=== PATIENT | male | born 1940 | race Caucasian/White ===

== ENCOUNTER 2020-04-20 08:14 | Inpatient (IN) | payer MEDICARE, OTHER ==
[2020-04-20] MEDS ORDERED: Diltiazem 125 MG/25 ML ONE (08:29)
[2020-04-20 08:41] LABS: #Eosinphils 0.1 thou/uL (0.0-0.7); #Lymphocytes 1.4 thou/uL (1.20-3.40); #Monocytes 0.3 thou/uL (0.11-0.59); %Eosinophils 1.4 % (0.0-10.0); %Lymphocytes 28.4 % (21.0-51.0); %Monocytes 6.8 % (0.0-10.0); %Neutrophils 62.4 % (42.0-75.0); Hemoglobin 15.4 g/dL (14.0-18.0); Mean Corpuscular HGB CONC 33.9 g/dL (32.0-36.0); Mean Corpuscular Hemoglobin 34.4 pg (27.0-31.0); Mean Platelet Volume 7.9 fL (7.4-10.4); Platelet Count 131 thou/uL (130-400); RBC Distribution Width 14.1 % (11.5-14.5); Red Blood Cell (RBC) Count 4.47 mill/uL (4.70-6.10); White Blood Cell (WBC) Count 4.8 thou/uL (4.8-10.8)
--- NOTE | 2020-04-20 08:45 | RAD ---
EXAM: Single view of the chest HISTORY: Leg swelling COMPARISON: None FINDINGS: Single view of the chest shows an enlarged cardiomediastinal silhouette. Calcified right h ilar and mediastinal lymph nodes are seen. There is a moderate right pleural effusion with adjacent atelectasis. The bones are unremarkable. IMPRESSION: Moderate right pleural effusion
[2020-04-20 08:55] LABS: ALT (SGPT) 20 U/L (8-55); AST (SGOT) 32 U/L (5-34); Albumin 3.9 g/dL (3.4-4.8); Alkaline Phosphatase 88 U/L (40-110); Anion Gap 15 mmol/L (10-20); BUN (Urea Nitrogen) 21 mg/dL (8.4-25.7); Bilirubin, Total 1.1 mg/dL (0.2-1.2); CK (CPK) 77 U/L (30-200); Calc. Creatinine Clearance 0 mL/min (70-130); Calcium 9.3 mg/dL (7.8-10.44); Carbon Dioxide 25 mmol/L (23-31); Chloride 107 mmol/L (98-107); Estimated GFR-MDRD 67; Globulin 2.8 g/dL (2.4-3.5); Glucose 101 mg/dL (83-110); Lipase 13 U/L (8-78); Potassium 3.9 mmol/L (3.5-5.1); Protein, Total 6.7 g/dL (5.8-8.1); Sodium 143 mmol/L (136-145)
[2020-04-20 12:03] LABS: Troponin I 0.018 ng/mL (< 0.028)
[2020-04-20 12:47] VITALS: BMI 26.8
[2020-04-20] MEDS ORDERED: Prevnar 13-Val Conj/PF 0.5 ML SYRINGE IM ONE (14:00)
[2020-04-20 14:47] LABS: Troponin I 0.018 ng/mL (< 0.028)
[2020-04-20] MEDS ORDERED: Ondansetron PF 4 MG/2 ML Vial IVP PRN (15:33)
[2020-04-20] MEDS ORDERED: Acetaminophen 325 MG TAB PO PRN (15:33)
[2020-04-20] MEDS ORDERED: Guaifenesin DM 100-10/5 ML UDCUP PO PRN (15:33)
[2020-04-20] MEDS ORDERED: Senokot S 8.6-50 MG TAB PO PRN (15:33)
[2020-04-20] MEDS ORDERED: Acetaminophen 650 MG Suppository PR PRN (15:33)
[2020-04-20] MEDS ORDERED: Ondansetron ODT 4 MG TAB PO PRN (15:33)
[2020-04-20] MEDS ORDERED: hydrALAZINE 20 MG/ML VIAL SLOW IVP PRN (15:34)
[2020-04-20] MEDS ORDERED: Labetalol HCl 100 MG/20 ML VIAL SLOW IVP PRN (15:34)
[2020-04-20] MEDS ORDERED: Diltiazem 125 MG in Sodium Chloride 0.9% 100 ML IVPB SCH (15:45)
[2020-04-20] MEDS ORDERED: Furosemide 40 MG/4 ML VIAL SLOW IVP SCH (18:45)
--- NOTE | 2020-04-20 18:57 | CON ---
DATE OF CONSULTATION: 04/20/2020 REASON FOR CONSULTATION: Atrial fibrillation with RVR. HISTORY OF PRESENT ILLNESS: Mr. Armando is a pleasant 79-year-old, white gentleman, who comes to the hospital for shortness of breath. He states that for the last week he has noticed that he is able to lay down in bed and after a few hours, he wakes up gasping for air. He has to sit up to breathe better. He also notices leg swelling for the past 3 weeks, which has been slowly getting worse. This is the first time he has had this issue before. He states that he has been told he has high blood pressure, but is mostly white coat hypertension. He states that when he checks his blood pressure at home is normal in the 130s, but when he goes to the doctor's in the 160s. On arrival to the ER, he was found to be in atrial fibrillation with RVR, heart rate in the 170s. He was started on diltiazem drip, given subcu Lovenox full dose and admitted for further evaluation. Cardiology is being consulted for all of this. PAST MEDICAL HISTORY: 1. Hypertension. He states it is more white coat hypertension. Takes no medications for it. 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 PAST SURGICAL HISTORY: 1. Retinal detachment, status post reattachment bilateral. 2. Right knee surgery. SOCIAL HISTORY: No alcohol, tobacco, or drugs. OUTPATIENT MEDICATIONS: Prilosec 10 mg a day. ALLERGIES: PENICILLIN. FAMILY HISTORY: Noncontributory. REVIEW OF SYSTEMS: A 12-point review of systems was done and was all negative unless stated in the History of Present Illness. PHYSICAL EXAMINATION: VITAL SIGNS: Temperature 97.8, pulse 178. On arrival to the ER since diltiazem drip, he has been between 98 to 113, respiratory rate 24, saturating 95% on room air. GENERAL: Awake, alert, and oriented x3. No distress. Sitting at about 60 degrees angle. HEENT: Normocephalic, atraumatic. NECK: Supple. LUNGS: Reduced breath sounds at bilateral bases. No breath sounds in the right base and dull to percussion, suggestive of a large pleural effusion. CARDIOVASCULAR: S1 and S2. No S3 or S4. Irregularly irregular heart rate in the low 100s. There is a holosystolic murmur at the apex, grade 2/6. ABDOMEN: Positive bowel sounds. May be ascites, difficult to assess. EXTREMITIES: 1+ edema. SKIN: Warm and dry. LABORATORY DATA: Laboratory work was reviewed. White count of 4.8, hemoglobin of 15.4, hematocrit 45, and platelet count of a 131. Chemistries were completely unremarkable. GFR of 67, creatinine 1.06. Troponin was negative x3. BNP was 547. TSH was high at 7.03. Free T4 and free T3 are pending. Lipase was normal. EKG on arrival showed atrial fibrillation with RVR, heart rate in the 170s. Telemetry now, heart rate in the 90s to 110s. Chest x-ray shows a large right-sided pleural effusion. ASSESSMENT: 1. Atrial fibrillation with rapid ventricular response. 2. Acute on chronic systolic versus diastolic dysfunction. 3. Right-sided pleural effusion, large. 4. Possible hypertension. PLAN: 1. Agree with rate control at this time with diltiazem drip. 2. Continue full-dose Lovenox for stroke prophylaxis as he has a CHADS-VASc score of 3 with age above 75 giving him 2 points and hypertension that is 3 points total. 3. We will await echocardiogram results. 4. Pulmonary malignancy would be in my differential given the large amount of fluid on the right side, although right-sided pleural effusions are typical with decompensated heart failure patients. We will await echocardiogram results. Thank you for letting us to participate in the care of your patient. We will continue to follow. Job ID: [id number]
[2020-04-20] MEDS: Enoxaparin Sodium 100 MG/ML SYRINGE SC SCH (21:37)
--- NOTE | 2020-04-20 23:40 | HP ---
PRIMARY CARE PHYSICIAN: Dr. Keren Godoy. CHIEF COMPLAINT: Edema and shortness of breath. HISTORY OF PRESENT ILLNESS: This is a 79-year-old white male with a past medical history of white coat hypertension, who presented to the hospital with a 3-week history of increasing swelling in his lower extremities, his scrotum, and his abdomen. He also noted some problems with going to sleep and waking up later gasping for breath and some dyspnea on exertion for the last few days and eventually decided to come to the emergency room. In the ER, he was found to be in atrial fibrillation with rapid ventricular rate, also had an elevated brain natriuretic peptide and a moderate right pleural effusion on his chest x-ray. He was started on diltiazem drip in the emergency room with improvement in his pressures and then was admitted to the [facility]. REVIEW OF SYSTEMS: CONSTITUTIONAL: No fevers. No chills. No weight changes. EYES: No double vision or blurred vision. ENT: No congestion, drainage, or sore throat. CARDIOVASCULAR: No chest pain. No palpitations or racing heart. PULMONARY: See HPI. He has had minimal cough without any sputum. No wheezing or chest tightness. GASTROINTESTINAL: No abdominal pain. No nausea or vomiting. No diarrhea or constipation. GENITOURINARY: No dysuria or hematuria. MUSCULOSKELETAL: No muscle aches or joint pain. SKIN: No rashes or lesions he has noted. NEUROLOGIC: No numbness, tingling, or focal weakness. PAST MEDICAL HISTORY: 1. White coat hypertension. Blood pressure is typically in the 130s. She checks it at home, but again 160s to 170s when checked at the doctor's office. He does monitor this regularly. 2. Gastroesophageal reflux disease with esophageal stricture. PAST SURGICAL HISTORY: 1. Right knee arthroscopically. 2. Bilateral cataract surgeries. 3. Bilateral retinal detachment surgeries. 4. Esophageal stricture dilatation x2. SOCIAL HISTORY: The patient denies tobacco, alcohol, or illicit drug use. He lives with his , who is his medical decision maker, her name is Soniya Armando and the patient reports he is a full code. FAMILY HISTORY: Significant for hypertension. ALLERGIES: TO PENICILLIN. CURRENT MEDICATIONS: Prilosec 20 mg daily [id number]. PHYSICAL EXAMINATION: VITAL SIGNS: Blood pressure 186/115, pulse 108, respirations 19, O2 saturation 97% on room air, temperature 98.0. GENERAL: This is a well-developed, well-nourished white male, in no acute distress. HEENT: Pupils are equal, round, and reactive to light. Oropharynx clear without lesions, erythema, or exudate. NECK: Supple. No lymphadenopathy. No thyroid nodules or enlargement. No JVD. HEART: Irregularly irregular rhythm with a mildly tachycardic rate. No murmurs, rubs, or gallops. LUNGS: Clear to auscultation bilaterally, but slightly decreased in the right base, otherwise good air movement throughout. No wheezes, crackles, or rhonchi. ABDOMEN: Soft, nontender to palpation. Normoactive bowel sounds. No hepatosplenomegaly or other masses. EXTREMITIES: No clubbing or cyanosis. He does have mild pitting edema to the lower extremities up to the lower thighs bilaterally. SKIN: No rashes or lesions noted. NEUROLOGIC: Intact strength and sensation to all extremities. No facial droop. PSYCHIATRIC: Alert and oriented x3. Normal mood and affect. LABORATORY DATA: CBC within normal limits except for MCV of 102. Complete metabolic panel within normal limits. Troponin negative x3. Brain natriuretic peptide elevated at 547. The last check on this was in 2017 was over 149. TSH was elevated at 7.0. IMAGING STUDIES: Chest x-ray, I did review the chest x-ray done in the emergency room along with the radiologist's report. It does show cardiomegaly, increased pulmonary vascular markings and a moderate right pleural effusion and an enlarged cardiac silhouette. EKG in the emergency room showed atrial fibrillation with rapid ventricular rate; however, with a heart rate of 174 beats per minute. No significant ST-segment or T-wave changes. ASSESSMENT: 1. New-onset atrial fibrillation with rapid ventricular rate. The patient with improved rate on diltiazem drip. We will continue to instruct and we will consult Cardiology. Family has requested Dr. Ballesteros will continue full-dose Lovenox. 2. Hypertension, history of white coat hypertension. We will diurese the patient and add blood pressure medicine as needed. 3. Acute onset of congestive heart failure, likely related to his atrial fibrillation, though he may have some systolic dysfunction as well with an echocardiogram to determine and we will continue IV Lasix twice a day for diuresis. 4. High TSH. We will check a free T4 and free T3. 5. Gastroesophageal reflux disease with history of esophageal stricture. We will continue patient on CP daily. 6. Deep venous thrombosis prophylaxis. The patient is on Lovenox. CODE STATUS: The patient is a full code. Should he be incapacitated, his Soniya Armando would be his medical decision maker. Job ID: [id number]
[2020-04-21 04:02] LABS: #Basophils 0.1 thou/uL (0.0-0.2); #Eosinphils 0.1 thou/uL (0.0-0.7); #Lymphocytes 1.2 thou/uL (1.20-3.40); #Monocytes 0.5 thou/uL (0.11-0.59); #Neutrophils 3.1 thou/uL (1.40-6.50); %Basophils 1.2 % (0.0-1.0); %Eosinophils 2.5 % (0.0-10.0); %Lymphocytes 23.6 % (21.0-51.0); %Monocytes 9.2 % (0.0-10.0); %Neutrophils 63.5 % (42.0-75.0); Hemoglobin 14.4 g/dL (14.0-18.0); Mean Corpuscular HGB CONC 34.1 g/dL (32.0-36.0); Mean Corpuscular Hemoglobin 33.9 pg (27.0-31.0); Mean Corpuscular Volume 99.2 fL (78.0-98.0); Mean Platelet Volume 7.7 fL (7.4-10.4); Platelet Count 141 thou/uL (130-400); RBC Distribution Width 14.1 % (11.5-14.5); Red Blood Cell (RBC) Count 4.25 mill/uL (4.70-6.10); White Blood Cell (WBC) Count 4.9 thou/uL (4.8-10.8)
[2020-04-21 04:20] LABS: Anion Gap 13 mmol/L (10-20); BUN (Urea Nitrogen) 16 mg/dL (8.4-25.7); Calc. Creatinine Clearance 88 mL/min (70-130); Calcium 9.2 mg/dL (7.8-10.44); Carbon Dioxide 29 mmol/L (23-31); Chloride 104 mmol/L (98-107); Estimated GFR-MDRD 80; Glucose 96 mg/dL (83-110); Potassium 4.3 mmol/L (3.5-5.1); Sodium 142 mmol/L (136-145)
[2020-04-21 04:39] LABS: Free T4 (Free Thyroxine) 0.98 ng/dL (0.70-1.48)
[2020-04-21] MEDS ORDERED: Furosemide 20 MG/2 ML VIAL SLOW IVP SCH ×2 (06:00)
[2020-04-21] MEDS: Furosemide 40 MG/4 ML VIAL SLOW IVP SCH ×2 (06:01→14:25)
[2020-04-21] MEDS: Enoxaparin Sodium 100 MG/ML SYRINGE SC SCH ×2 (07:43→20:09)
--- NOTE | 2020-04-21 08:30 | PDOC.HOSPP ---
- Subjective Encounter Date: 04/21/20 Encounter Time: 14:00 Subjective: Patient with good diuresis. Feels much better and no more shortness of breath. - Objective Vital Signs & Weight: Vital Signs (12 hours) Temp BP Pulse Ox 04/21/20 07:51 98 04/21/20 07:45 175/98 H 04/21/20 07:35 97.6 F 04/21/20 07:10 98 04/21/20 07:00 179/88 H 04/21/20 06:00 182/95 H 04/21/20 05:00 153/99 H 04/21/20 04:00 97.5 F L 147/90 H 04/21/20 03:00 158/81 H 04/21/20 02:00 147/96 H 04/21/20 01:00 165/78 H 04/21/20 00:00 97.3 F L 167/110 H 04/20/20 23:00 126/103 H 04/20/20 21:40 127/95 H Weight Weight 198 lb 5 oz Most Recent Monitor Data Heart Rate from ECG 143 NIBP 170/92 NIBP BP-Mean 118 Respiration from ECG 38 SpO2 97 I&O: 04/20/20 04/21/20 04/22/20 06:59 06:59 06:59 Intake Total 555 Output Total 2275 Balance -1720 Result Diagrams: 04/21/20 03:19 04/21/20 03:19 Hospitalist ROS - Review of Systems Constitutional: denies: fever, chills Respiratory: denies: cough, shortness of breath Cardiovascular: reports: edema. denies: chest pain, palpitations Gastrointestinal: denies: nausea, vomiting - Medication Medications: Active Medications Generic Name Dose Route Start Last Admin Trade Name Freq PRN Reason Stop Dose Admin Enoxaparin Sodium 95 mg 04/20/20 21:00 04/21/20 07:43 Lovenox SC 95 mg 0900,2100 BIN Administration Furosemide 40 mg 04/21/20 06:00 04/21/20 06:01 Lasix SLOW IVP 40 mg 0600,1400 BIN Administration Diltiazem HCl 125 mg/ Sodium 125 mls @ 0 mls/hr 04/20/20 15:45 04/21/20 01:23 Chloride IVPB 125 mls INF BIN Administration Protocol Titrate Pantoprazole Sodium 40 mg 06/23/20 09:00 04/21/20 07:44 Protonix PO 40 mg DAILY BIN Administration - Exam General Appearance: NAD, awake alert ENT: moist mucosa Heart: no murmur, no gallops, no rubs, normal peripheral pulses, irregular Respiratory: CTAB Respiratory - other findings: mild decreased breath sounds in right base Gastrointestinal: soft, non-tender, non-distended, normal bowel sounds Extremities - other findings: trace edema to mid thigh, especially dependent portion Psychiatric: normal affect, normal behavior, A&O x 3 Hosp A/P (1) Atrial fibrillation with RVR Code(s): I48.91 - UNSPECIFIED ATRIAL FIBRILLATION Status: Acute (2) Acute congestive heart failure Code(s): I50.9 - HEART FAILURE, UNSPECIFIED Status: Acute (3) Hypertension Code(s): I10 - ESSENTIAL (PRIMARY) HYPERTENSION Status: Acute (4) Hypothyroidism Code(s): E03.9 - HYPOTHYROIDISM, UNSPECIFIED Status: Acute - Plan Heart rate back up this AM with weaning of diltiazem drip, now drip at 15 again and heart rate in low 100s ECHO pending Appreciate cardiology imput Continue Lovenox and switch to oral anticoagulant when determined by cardiology TSH up but free T4 and free T3 both normal, will need outpatient followup and monitoring
--- NOTE | 2020-04-21 17:56 | PDOC.CPN ---
- Subjective Date: 04/21/20 Time: 17:54 Interval history: He is feeling much better, has diuresed well but still cannot lay flat. - Review of Systems General: denies: fever/chills, weight/appetite/sleep changes, night sweats, fatigue Respiratory: reports: shortness of breath, exercise intolerance. denies: cough , congestion Cardiovascular: denies: chest pain, palpitation, edema, paroxysmal nocturnal dyspnea, orthopnea Gastrointestinal: denies: nausea, vomiting, diarrhea, constipation, abd pain, GI bleeding Musculoskeletal: denies: pain, tenderness, stiffness, swelling, arthritis/ arthralgias Neurological: denies: numbness, syncope, seizure, weakness - Objective Allergies/Adverse Reactions: Allergies Allergy/AdvReac Type Severity Reaction Status Date / Time Penicillins Allergy Verified 04/08/14 16:56 Visit Medications: Current Medications Acetaminophen (Tylenol) 650 mg PO Q4H PRN PRN Reason: Headache/Fever/Mild Pain (1-3) Acetaminophen (Tylenol) 650 mg [place] Q4H PRN PRN Reason: Headache/Fever/Mild Pain (1-3) Enoxaparin Sodium (Lovenox) 95 mg SC 0900,2100 [facility] Last Admin: 04/21/20 07:43 Dose: 95 mg Furosemide (Lasix) 40 mg SLOW IVP 0600,1400 [facility] Last Admin: 04/21/20 14:25 Dose: 40 mg Guaifenesin/Dextromethorphan (Robitussin Dm) 15 ml PO Q4H PRN PRN Reason: Cough Hydralazine HCl (Apresoline) 10 mg SLOW IVP Q4H PRN PRN Reason: SBP Greater Than 180 Diltiazem HCl 125 mg/ Sodium (Chloride) 125 mls @ 0 mls/hr IVPB INF [facility]; Protocol Last Admin: 04/21/20 01:23 Dose: 125 mls Labetalol HCl (Normodyne) 10 mg SLOW IVP Q4H PRN PRN Reason: SBP Greater Than 180 Ondansetron HCl (Zofran Odt) 4 mg PO Q6H PRN PRN Reason: Nausea/Vomiting Ondansetron HCl (Zofran) 4 mg IVP Q6H PRN PRN Reason: Nausea/Vomiting Pantoprazole Sodium (Protonix) 40 mg PO DAILY [facility] Last Admin: 04/21/20 07:44 Dose: 40 mg Senna/Docusate Sodium (Senokot S) 2 tab PO BIDPRN PRN PRN Reason: Constipation Vital Signs & Weight: Vital Signs Temp BP Pulse Ox 04/21/20 13:00 178/94 H 04/21/20 11:30 98.0 F 04/21/20 11:15 147/68 H 04/21/20 09:30 154/78 H 04/21/20 07:51 98 04/21/20 07:45 175/98 H 04/21/20 07:35 97.6 F 04/21/20 07:10 98 04/21/20 07:00 179/88 H 04/21/20 06:00 182/95 H Weight 198 lb 5 oz - Physical Exam General: alert & oriented x3 HEENT: mucus membranes moist Neck: supple neck Cardiac: irregularly regular Lungs: decreased breath sounds Neuro: grossly intact, no lateralizing findings Abdomen: active bowel sounds Extremities: 1+ LE edema Skin: clear Musculoskeletal: no pain - Labs Result Diagrams: 04/21/20 03:19 04/21/20 03:19 Troponin/CKMB Troponin I 0.018 ng/mL (< 0.028) 04/20/20 13:58 - Telemetry Supraventricular conduction: atrial fibrillation - Assessment/Plan Assessment/Plan: 1. Afib RVR, now rate controlled. 2. Acute decompensated heart failure, high output from Afib, 3. Normal LV function. 4. mild to moderate MR 5. moderate to severe TR. 6. Severely dilated atria. PLAN: - Continue rate control. - Will stop diltiazem drip and switch to amiodarone drip for loading. - Will start oral BB. - Plan on [facility] in next few days once better diuresed. - Large atria decrease likelyhood of remaining in sinus but will try once loaded on amio. - Will follow.
[2020-04-21] MEDS: Amiodarone 450 MG in Dextrose 5% in Water 250 ML IVPB SCH (20:10)
[2020-04-21] MEDS: Metoprolol Tartrate 25 MG TAB PO SCH (20:10)
[2020-04-22] MEDS: Furosemide 40 MG/4 ML VIAL SLOW IVP SCH ×2 (05:47→14:07)
[2020-04-22] MEDS: Metoprolol Tartrate 25 MG TAB PO SCH ×2 (09:33→20:16)
[2020-04-22] MEDS: Enoxaparin Sodium 100 MG/ML SYRINGE SC SCH ×2 (09:33→20:16)
--- NOTE | 2020-04-22 14:44 | PDOC.HOSPP ---
- Subjective Encounter Date: 04/22/20 Encounter Time: 11:00 Subjective: Patient feeling much better. Heart rate controlled this morning. Still peeing a lot but not as much as before. - Objective Vital Signs & Weight: Vital Signs (12 hours) Temp Pulse Pulse BP Pulse Ox Pulse Ox Pulse Ox 04/22/20 11:15 98 F 04/22/20 10:43 88 135 H 133/89 96 96 04/22/20 08:00 100 04/22/20 07:19 97.8 F 04/22/20 04:30 97.7 F Weight Weight 192 lb 5 oz Most Recent Monitor Data Heart Rate from ECG 80 NIBP 146/89 NIBP BP-Mean 108 Respiration from ECG 14 SpO2 100 I&O: 04/21/20 04/22/20 04/23/20 06:59 06:59 06:59 Intake Total 555 1518 Output Total 2275 3250 Balance -2693 -6063 Result Diagrams: 04/21/20 03:19 04/21/20 03:19 Hospitalist ROS - Review of Systems Constitutional: denies: fever, chills Respiratory: denies: cough, shortness of breath Cardiovascular: denies: chest pain, palpitations Gastrointestinal: denies: nausea, vomiting - Medication Medications: Active Medications Generic Name Dose Route Start Last Admin Trade Name Freq PRN Reason Stop Dose Admin Diltiazem HCl 30 mg 04/21/20 21:00 04/22/20 09:33 Cardizem PO 30 mg BID BIN Administration Enoxaparin Sodium 95 mg 04/20/20 21:00 04/22/20 09:33 Lovenox SC 95 mg 0900,2100 BIN Administration Furosemide 40 mg 04/21/20 06:00 04/22/20 14:07 Lasix SLOW IVP 40 mg 0600,1400 BIN Administration Amiodarone HCl 450 mg/ 259 mls @ 0 mls/hr 04/21/20 18:00 04/21/20 20:10 Dextrose/Water IVPB 259 mls INF BIN Administration Protocol Per Protocol Metoprolol Tartrate 12.5 mg 04/21/20 21:00 04/22/20 09:33 Lopressor PO 12.5 mg BID BIN Administration Pantoprazole Sodium 40 mg 04/21/20 09:00 04/22/20 09:33 Protonix PO 40 mg DAILY BIN Administration - Exam General Appearance: NAD ENT: moist mucosa Heart: no murmur, no gallops, no rubs, irregular Respiratory: CTAB, no wheezes, no rales, no ronchi Extremities - other findings: trace edema to BLE Psychiatric: normal affect, normal behavior, A&O x 3 Hosp A/P (1) Atrial fibrillation with RVR Code(s): I48.91 - UNSPECIFIED ATRIAL FIBRILLATION Status: Acute (2) Acute congestive heart failure Code(s): I50.9 - HEART FAILURE, UNSPECIFIED Status: Acute Qualifiers: Heart failure type: diastolic Qualified Code(s): I50.31 - Acute diastolic ( congestive) heart failure (3) Hypertension Code(s): I10 - ESSENTIAL (PRIMARY) HYPERTENSION Status: Acute (4) Hypothyroidism Code(s): E03.9 - HYPOTHYROIDISM, UNSPECIFIED Status: Acute - Plan Heart rate well controlled with Amiodarone and oral beta eusebio. ECHO showing normal EF, severe dilation of left and right atria Appreciate cardiology imput, plan to cardiovert later this week Continue Lovenox and switch to oral anticoagulant when determined by cardiology TSH up but free T4 and free T3 both normal, will need outpatient followup and monitoring
--- NOTE | 2020-04-22 17:31 | PDOC.CPN ---
- Subjective Date: 04/22/20 Time: 17:29 Interval history: He is doing much better. Breathing back to normal. - Review of Systems General: denies: fever/chills, weight/appetite/sleep changes, night sweats, fatigue Respiratory: denies: cough, congestion, shortness of breath, exercise intolerance Cardiovascular: denies: chest pain, palpitation, edema, paroxysmal nocturnal dyspnea, orthopnea Gastrointestinal: denies: nausea, vomiting, diarrhea, constipation, abd pain, GI bleeding Musculoskeletal: denies: pain, tenderness, stiffness, swelling, arthritis/ arthralgias Neurological: denies: numbness, syncope, seizure, weakness - Objective Allergies/Adverse Reactions: Allergies Allergy/AdvReac Type Severity Reaction Status Date / Time Penicillins Allergy Verified 04/08/14 16:56 Visit Medications: Current Medications Acetaminophen (Tylenol) 650 mg PO Q4H PRN PRN Reason: Headache/Fever/Mild Pain (1-3) Acetaminophen (Tylenol) 650 mg [place] Q4H PRN PRN Reason: Headache/Fever/Mild Pain (1-3) Diltiazem HCl (Cardizem) 30 mg PO BID [facility] Last Admin: 04/22/20 09:33 Dose: 30 mg Enoxaparin Sodium (Lovenox) 95 mg SC 0900,2100 [facility] Last Admin: 04/22/20 09:33 Dose: 95 mg Furosemide (Lasix) 40 mg SLOW IVP 0600,1400 [facility] Last Admin: 04/22/20 14:07 Dose: 40 mg Guaifenesin/Dextromethorphan (Robitussin Dm) 15 ml PO Q4H PRN PRN Reason: Cough Hydralazine HCl (Apresoline) 10 mg SLOW IVP Q4H PRN PRN Reason: SBP Greater Than 180 Amiodarone HCl 450 mg/ (Dextrose/Water) 259 mls @ 0 mls/hr IVPB INF [facility]; Protocol Last Admin: 04/21/20 20:10 Dose: 259 mls Labetalol HCl (Normodyne) 10 mg SLOW IVP Q4H PRN PRN Reason: SBP Greater Than 180 Metoprolol Tartrate (Lopressor) 12.5 mg PO BID [facility] Last Admin: 04/22/20 09:33 Dose: 12.5 mg Ondansetron HCl (Zofran Odt) 4 mg PO Q6H PRN PRN Reason: Nausea/Vomiting Ondansetron HCl (Zofran) 4 mg IVP Q6H PRN PRN Reason: Nausea/Vomiting Pantoprazole Sodium (Protonix) 40 mg PO DAILY BIN Last Admin: 04/22/20 09:33 Dose: 40 mg Senna/Docusate Sodium (Senokot S) 2 tab PO BIDPRN PRN PRN Reason: Constipation Vital Signs & Weight: Vital Signs Temp Pulse Pulse BP Pulse Ox Pulse Ox Pulse Ox 04/22/20 16:00 98.2 F 04/22/20 11:15 98 F 04/22/20 10:43 88 135 H 133/89 96 96 04/22/20 08:00 100 04/22/20 07:19 97.8 F Weight 192 lb 5 oz - Physical Exam General: alert & oriented x3 HEENT: mucus membranes moist Neck: supple neck Cardiac: irregularly regular Lungs: clear to auscultation Neuro: grossly intact Abdomen: active bowel sounds Extremities: 1+ LE edema Skin: clear Musculoskeletal: no pain - Labs Result Diagrams: 04/21/20 03:19 04/21/20 03:19 Troponin/CKMB Troponin I 0.018 ng/mL (< 0.028) 04/20/20 13:58 - Telemetry Supraventricular conduction: atrial fibrillation - Assessment/Plan Assessment/Plan: 1. Afib RVR, now rate controlled. 2. Acute decompensated heart failure, high output from Afib, improved. 3. Normal LV function. 4. Mild to moderate MR 5. Moderate to severe TR. 6. Severely dilated atria. PLAN: - Continue rate control. - Will stop diltiazem drip and switch to amiodarone drip for loading. - Will start oral BB. - Plan on [facility] tomorrow. We spoke about risks and benefits and he agrees to proceed. - Large atria decrease likelyhood of remaining in sinus but will try once loaded on amio. If he does not convert will do rate control strategy. - Will need Eliquis before discharge.
[2020-04-22] MEDS: Amiodarone 450 MG in Dextrose 5% in Water 250 ML IVPB SCH (20:57)
[2020-04-23] MEDS: Furosemide 40 MG/4 ML VIAL SLOW IVP SCH ×2 (07:47→16:09)
[2020-04-23] MEDS ORDERED: PROPOFOL 20 ML ONE (08:54)
[2020-04-23] MEDS ORDERED: PROPOFOL 200 MG/20 ML VIAL ONE (09:12)
[2020-04-23] MEDS: Enoxaparin Sodium 100 MG/ML SYRINGE SC SCH (11:18)
[2020-04-23] MEDS: Metoprolol Tartrate 25 MG TAB PO SCH ×2 (11:18→20:04)
--- NOTE | 2020-04-23 15:17 | PDOC.HOSPP ---
- Subjective Encounter Date: 04/23/20 Encounter Time: 10:50 Subjective: s/p MARLINE, pt just coming back into the room. sinus tachy, BP high. on amio drip. ok to transfer to [facility], if cleared by CCM. - Objective Vital Signs & Weight: Vital Signs (12 hours) Temp Pulse Ox 04/23/20 15:09 97.0 F L 04/23/20 11:10 96.8 F L 04/23/20 09:30 99 04/23/20 07:47 99 04/23/20 07:08 97.0 F L 04/23/20 03:41 97.4 F L Weight Weight 189 lb 6 oz Most Recent Monitor Data Heart Rate from ECG 58 NIBP 148/78 NIBP BP-Mean 101 Respiration from ECG 12 SpO2 100 I&O: 04/22/20 04/23/20 04/24/20 06:59 06:59 06:59 Intake Total 1518 1151 Output Total 3256 4055 Balance -7018 -899 Result Diagrams: 04/21/20 03:19 04/21/20 03:19 Hospitalist ROS - Medication Medications: Active Medications Generic Name Dose Route Start Last Admin Trade Name Freq PRN Reason Stop Dose Admin Diltiazem HCl 30 mg 04/21/20 21:00 04/23/20 11:18 Cardizem PO 30 mg BID BIN Administration Enoxaparin Sodium 95 mg 04/20/20 21:00 04/23/20 11:18 Lovenox SC 95 mg 0900,2100 BIN Administration Furosemide 40 mg 04/21/20 06:00 04/23/20 07:47 Lasix SLOW IVP Not Given 0600,1400 BIN Amiodarone HCl 450 mg/ 259 mls @ 0 mls/hr 04/21/20 18:00 04/22/20 20:57 Dextrose/Water IVPB 259 mls INF BIN Administration Protocol Per Protocol Metoprolol Tartrate 12.5 mg 04/21/20 21:00 04/23/20 11:18 Lopressor PO 12.5 mg BID BIN Administration Pantoprazole Sodium 40 mg 04/21/20 09:00 04/23/20 11:18 Protonix PO 40 mg DAILY BIN Administration - Exam General Appearance: NAD, awake alert Eye: PERRL ENT: normocephalic atraumatic Neck: supple Heart - other findings: tachycaria, sinus on the monitor Respiratory: CTAB, normal chest expansion, no tachypnea Gastrointestinal: soft, normal bowel sounds Neurological: no focal deficits Psychiatric: normal affect, normal behavior, A&O x 3 Hosp A/P - Plan (1) Atrial fibrillation with RVR Code(s): I48.91 - UNSPECIFIED ATRIAL FIBRILLATION Status: Acute (2) Acute congestive heart failure Code(s): I50.9 - HEART FAILURE, UNSPECIFIED Status: Acute Qualifiers: Heart failure type: diastolic Qualified Code(s): I50.31 - Acute diastolic ( congestive) heart failure (3) Hypertension Code(s): I10 - ESSENTIAL (PRIMARY) HYPERTENSION Status: Acute (4) Hypothyroidism Code(s): E03.9 - HYPOTHYROIDISM, UNSPECIFIED Status: Acute afib - s/p MARLINE -cw amioda on tele bed -cw BB - ECHO showing normal EF, severe dilation of left and right atria -switched from lvnx to eqliuis Hypothyroidism - free T4 and free T3 both normal, -since TSH Above 7, and afib --would start low dose supplement. - outpatient followup for repeat TSH in 4 weeks
[2020-04-23] MEDS ORDERED: Metoprolol Tartrate 25 MG TAB PO SCH (17:00)
[2020-04-23] MEDS ORDERED: Amiodarone 200 MG TAB PO SCH (17:00)
[2020-04-23] MEDS: Amiodarone 200 MG TAB PO SCH (17:12)
--- NOTE | 2020-04-23 17:54 | CCLSPC ---
PROCEDURE PERFORMED: Direct current cardioversion. SUMMARY: Mr. Armando is a 79-year-old white gentleman, who comes to the hospital for heart failure and atrial fibrillation with RVR. The Anesthesiology Department provided sedation for the patient. Please see their notes for details. After adequate sedation was achieved, initially a synchronized shock was delivered at 100 joules which was unsuccessful. Second shock at 150 joules synchronized was also unsuccessful. Third shock of 200 was unsuccessful. Fourth shock at 360 joules synchronized successfully converting him into sinus briefly and then he went back into atrial fibrillation, and a fifth shock at 360 successfully converted him into sinus rhythm with small runs of atrial fibrillation or atrial flutter, but he overall remained in sinus after that mostly. The patient tolerated the procedure well. RECOMMENDATIONS: 1. Continue full anticoagulation. 2. Continue amiodarone load. 3. May discharge home tomorrow if he remains stable. 4. If he goes back into atrial fibrillation, which is likely given his large atria, rate control strategy will be pursued. Job ID: [id number]
[2020-04-23] MEDS ORDERED: Enoxaparin Sodium 100 MG/ML SYRINGE SC SCH (19:30)
[2020-04-23] MEDS ORDERED: Apixaban 5 MG TAB PO SCH (21:00)
[2020-04-24] MEDS ORDERED: Levothyroxine Sodium 50 MCG TAB PO SCH (06:00)
[2020-04-24] MEDS ORDERED: Amiodarone 200 MG TAB PO SCH (09:00)
[2020-04-24] MEDS ORDERED: Lisinopril 5 MG TAB PO SCH (09:00)
[2020-04-24] MEDS ORDERED: Apixaban 5 MG TAB PO SCH (09:00)
[2020-04-24] MEDS: Amiodarone 200 MG TAB PO SCH (10:50)
[2020-04-24] MEDS: Metoprolol Tartrate 25 MG TAB PO SCH (10:50)
[2020-04-24 11:44] VITALS: BP 163/100
--- NOTE | 2020-04-24 12:40 | PDOC.CPN ---
- Subjective Date: 04/24/20 Time: 12:39 Interval history: He is doing very well. He remains in sinus rhythm. His breathing is back to normal. - Review of Systems General: denies: fever/chills, weight/appetite/sleep changes, night sweats, fatigue Respiratory: denies: cough, congestion, shortness of breath, exercise intolerance Cardiovascular: denies: chest pain, palpitation, edema, paroxysmal nocturnal dyspnea, orthopnea Gastrointestinal: denies: nausea, vomiting, diarrhea, constipation, abd pain, GI bleeding Musculoskeletal: denies: pain, tenderness, stiffness, swelling, arthritis/ arthralgias Neurological: denies: numbness, syncope, seizure, weakness - Objective Allergies/Adverse Reactions: Allergies Allergy/AdvReac Type Severity Reaction Status Date / Time Penicillins Allergy Verified 04/08/14 16:56 Visit Medications: Current Medications Acetaminophen (Tylenol) 650 mg PO Q4H PRN PRN Reason: Headache/Fever/Mild Pain (1-3) Acetaminophen (Tylenol) 650 mg MS Q4H PRN PRN Reason: Headache/Fever/Mild Pain (1-3) Amiodarone HCl (Cordarone) 400 mg PO BID [facility] Last Admin: 04/24/20 10:50 Dose: 400 mg Apixaban (Eliquis) 5 mg PO BID [facility] Last Admin: 04/24/20 10:49 Dose: 5 mg Diltiazem HCl (Cardizem) 30 mg PO BID [facility] Last Admin: 04/24/20 10:48 Dose: 30 mg Guaifenesin/Dextromethorphan (Robitussin Dm) 15 ml PO Q4H PRN PRN Reason: Cough Hydralazine HCl (Apresoline) 10 mg SLOW IVP Q4H PRN PRN Reason: SBP Greater Than 180 Amiodarone HCl 450 mg/ (Dextrose/Water) 259 mls @ 0 mls/hr IVPB INF [facility]; Protocol Last Admin: 04/22/20 20:57 Dose: 259 mls Labetalol HCl (Normodyne) 10 mg SLOW IVP Q4H PRN PRN Reason: SBP Greater Than 180 Levothyroxine Sodium (Synthroid) 50 mcg PO 0600 [facility] Last Admin: 04/24/20 05:36 Dose: Not Given Lisinopril (Zestril) 5 mg PO DAILY [facility] Last Admin: 04/24/20 10:49 Dose: 5 mg Metoprolol Tartrate (Lopressor) 25 mg PO BID [facility] Last Admin: 04/24/20 10:50 Dose: 25 mg Ondansetron HCl (Zofran Odt) 4 mg PO Q6H PRN PRN Reason: Nausea/Vomiting Ondansetron HCl (Zofran) 4 mg IVP Q6H PRN PRN Reason: Nausea/Vomiting Pantoprazole Sodium (Protonix) 40 mg PO DAILY [facility] Last Admin: 04/24/20 10:50 Dose: 40 mg Senna/Docusate Sodium (Senokot S) 2 tab PO BIDPRN PRN PRN Reason: Constipation Vital Signs & Weight: Vital Signs Temp Pulse Pulse Pulse BP BP BP 04/24/20 11:23 97.5 F L 04/24/20 09:38 80 67 80 163/100 H 162/94 H 161/84 H 04/24/20 07:45 04/24/20 07:17 97.6 F 04/24/20 03:37 97.1 F L Pulse Ox Pulse Ox Pulse Ox Pulse Ox 04/24/20 11:23 04/24/20 09:38 100 100 100 04/24/20 07:45 100 04/24/20 07:17 04/24/20 03:37 Weight 189 lb 3.2 oz - Physical Exam General: alert & oriented x3 HEENT: mucus membranes moist Neck: supple neck Cardiac: regular rate and rhythm Lungs: clear to auscultation Neuro: grossly intact Abdomen: active bowel sounds Extremities: no edema Skin: clear Musculoskeletal: no pain - Labs Result Diagrams: 04/21/20 03:19 04/21/20 03:19 Troponin/CKMB Troponin I 0.018 ng/mL (< 0.028) 04/20/20 13:58 - Telemetry Sinus rhythms and dysrhythmias: sinus rhythm - Assessment/Plan Assessment/Plan: 1. Afib RVR, now rate controlled. 2. Acute decompensated heart failure, high output from Afib, improved. 3. Normal LV function. 4. Mild to moderate MR 5. Moderate to severe TR. 6. Severely dilated atria. PLAN: - Remains in sinus after cardiversion. - Continue Eliquis 5 mg BID for stroke prophylaxis. - Continue amiodarone load at 400 mg BID for 10 days and then on May 04 down to maintenance dose at 200 mg daily. - Follow up in the office in 1-2 weeks - Please provide with Eliquis coupon for free 30 days - May discharge home any time.
--- NOTE | 2020-04-24 14:38 | CON ---
DATE OF CONSULTATION: REASON FOR CONSULTATION: Atrial arrhythmias, possible SVT. HISTORY OF PRESENT ILLNESS: Mr. Armando is a 79-year-old gentleman, who presented to the hospital shortness of breath and orthopnea. He had significant shortness of breath while recumbent and also noticed peripheral edema for approximately 3 weeks that was progressive. He has never had these issues before and has relatively uncomplicated past medical history, possibly just with hypertension. He was found to be in atrial fibrillation with RVR and ventricular rates in the 170 beats per minute range. He was started on diltiazem drip and subcutaneous Lovenox and ultimately underwent cardioversion and initiation of anticoagulation with Eliquis. Following his cardioversion, amiodarone was transitioned to oral dosing and he was found to have paroxysmal episodes of narrow complex tachycardia that was thought to be SVT. EP consultation was requested for consideration of SVT ablation and atrial fibrillation management. Mr. Armando is feeling well. He is no longer experiencing the symptoms that brought him to the hospital. He denies any ongoing heart racing, palpitations, chest pain, syncope, stroke-like symptoms, shortness of breath that is positional, or peripheral edema. REVIEW OF SYSTEMS: A 12-point review of systems is negative except that listed above in the HPI. PAST MEDICAL HISTORY: 1. Hypertension. 2. Lewis esophagus. 3. Retinal detachment, status post reattachment bilaterally. 4. Right knee surgery. SOCIAL HISTORY: Negative for alcohol, tobacco, or illicit drug use. He is . OUTPATIENT MEDICATIONS: Prilosec as needed. ALLERGIES: PENICILLIN. FAMILY HISTORY: Negative for sudden cardiac or early-onset CAD. OBJECTIVE: VITAL SIGNS: Temperature 97.5, oxygen 100% on room air, heart rate is 70, blood pressure 142/88, respirations 22. GENERAL: The patient is alert and oriented. Speech is clear. Affect is appropriate. He is in no apparent distress, resting comfortably in bed at time the of exam. HEENT: Normocephalic and atraumatic. Sclerae are anicteric. EOMs are intact. Oral mucosa is moist and pink with adequate dentition. HEART: Rate is with crisp S1 and S2. PMI is nondisplaced. LUNGS: Clear to auscultation bilaterally without wheezes, crackles, or rhonchi. EXTREMITIES: Warm and dry to touch without clubbing or cyanosis. Trace bilateral lower extremity edema is noted. NEUROLOGIC: Grossly intact. Nonfocal. Gait was not assessed. LABORATORY DATA: Hematology was unremarkable. Chemistry; potassium 4.3, creatinine 0.91. BNP 547. TSH 7.03, T4 of 0.98, T3 of 3.34. Cardioversion on 04/23/2020. Shock-1, 100 joules unsuccessful. Shock-2, 150 joules unsuccessful. Shock-3, 200 joules unsuccessful. Shock-4, 360 joules temporarily successful. Shock-5, 360 joules successful and sustained sinus rhythm. Echocardiogram on 04/21/2020, EF 50% to 55%, markedly enlarged right atrium, severely dilated left atrium. Left atrial dimension is 5.61 cm. IMPRESSION: 1. Newly diagnosed atrial fibrillation with RVR, status post cardioversion and amiodarone loading ongoing. 2. CHADS-VASc score of 3 on the basis of advanced age and hypertension, on Eliquis 5 mg b.i.d. 3. Narrow complex paroxysmal tachycardia, supraventricular tachycardia versus atrial flutter, ventricular rate 150 beats per minute. PLAN AND RECOMMENDATIONS: Mr. Armando is a pleasant 79-year-old gentleman with newly diagnosed atrial arrhythmias. He is symptomatic with shortness of breath, fluid retention, and fatigue. His ventricular rate was 170 beats per minute upon arrival to the hospital. He was started on IV amiodarone and underwent cardioversion on 04/23, which successfully restored sinus rhythm on the 5th shock with 360 joules. He has had intermittent episodes of narrow complex tachycardia at 150 beats per minute that likely represents atrial flutter, but could also be SVT. The single lead tracings are indeterminate at this time. Either way, my recommendation is for continued amiodarone for short term, continue anticoagulation and consider ablation in 30 days as an outpatient. At that time, we will discuss pulmonary venous isolation and also looking for potential SVT versus an atrial flutter. The patient is agreeable to this. He is okay to discharge home from an EP perspective. Thank you for allowing me to participate in the care of this patient. Job ID: [id number]
--- NOTE | 2020-04-24 14:46 | ECHO ---
PREPROCEDURE DIAGNOSIS: Atrial fibrillation with rapid ventricular response. PROCEDURE PERFORMED: Transesophageal echocardiogram. DETAILS: The Anesthesiology Department provided sedation for the patient. Please see their notes for details. After adequate sedation was achieved, transesophageal probe was inserted into the mouth and into the esophagus. Multiplanar views were then obtained. FINDINGS: 1. Left ventricle appears to be normal size with normal wall thickness. Systolic function appears to be reduced. EF estimated at about 40% to 45%. 2. Left atrium is moderately to severely dilated. 3. Left atrial appendage is a small appendage with very reduced velocities, but no evidence of mass or thrombus. There is spontaneous echo contrast. 4. Right atrium is dilated with no mass or thrombus. 5. Right ventricle is dilated with reduced RV systolic function. 6. Aortic valve is sclerotic, but opens well. No stenosis. Mild aortic insufficiency. 7. Mitral valve is structurally normal. There is mild to moderate MR. No stenosis. 8. Tricuspid valve is structurally normal. There is mild TR. 9. Pulmonary valve is structurally normal. No stenosis. There is mild PI. CONCLUSIONS: 1. Mildly reduced EF at 40% to 45%. 2. Atrial fibrillation during study. 3. Biatrial enlargement. 4. Left atrial appendage without mass or thrombus with reduced velocities and spontaneous echo contrast throughout the left atrium. 5. Mild MR, mild TR, mild PI. 6. Mild AI with aortic valve sclerosis. ADDENDUM: Transthoracic echo done after cardioversion with the patient in sinus, showed an EF of 50% to 55%. Job ID: [id number]
[2020-04-24 15:09] VITALS: TEMP 97.8
--- NOTE | 2020-04-25 05:59 | DIS ---
DATE OF ADMISSION: 04/20/2020 DATE OF DISCHARGE: 04/24/2020 DISCHARGE MEDICATIONS: 1. Amiodarone 400 mg twice a day for 7 days followed by 200 mg twice a day. Has to be followed by custom car builder, Dr. Ballesteros. 2. Eliquis 5 mg twice a day. 3. Prilosec 20 mg daily. 4. Levothyroxine 50 mcg daily. 5. Metoprolol tartrate 25 mg twice a day. DISCHARGE DIAGNOSES: 1. Atrial fibrillation with rapid ventricular response. 2. Acute diastolic congestive heart failure. 3. Hypertension. 4. Hypothyroidism. CONSULTS: Dr. Ballesteros. PROCEDURE: He had a cardioversion preceded by MARLINE. PHYSICAL EXAMINATION: VITAL SIGNS: On the day of discharge, temperature 97.5, pulse 80, blood pressure 162/94, saturating 100% on room air. GENERAL: The patient is alert, oriented, no acute distress. I have checked with Dr. Ballesteros. He is agreeable for the discharge. Monitor shows sinus rhythm, rate 60 to 75 beats per minute. CARDIOVASCULAR: Regular rhythm, rate. No murmurs. PULMONARY: Clear lungs. ABDOMEN: Good bowel sounds. HOSPITAL COURSE: This is a 79-year-old male, admitted on April 20 with edema and short of breath. He had new onset atrial fibrillation with RVR, improved the rate with Cardizem drip. He was initially on full-dose Lovenox for anticoagulation. Later, transitioned to Eliquis b.i.d. His kidney function normal. His acute onset of CHF, probably related to his atrial fibrillation. He was diuresed transiently. His free T4 and T3 are normal. However, his TSH is 7.03. Given the significant number and afib, I started him on a low-dose levothyroxine. He needs to check his TSH through his primary care physician in 6 to 8 weeks. Regarding after his cardioversion, the patient is in sinus rhythm for the last 24 hours. He will be continuing the amiodarone 400 twice a day for 1 week followed by 200 twice a day. In the interim, he will contact Dr. Ballesteros's clinic for an appointment. Clinically stable to be discharged home. DISCHARGE INSTRUCTIONS: Activity as tolerated. Healthy heart diet. Follow up with the primary care physician in 1 week. Follow up with Dr. Ballesteros within a week, so that prescription for amiodarone can be continued. I have given a script for 400 twice a day for 1 week. His baseline liver function tests are in the normal range. Discharge time over 35 minutes. Request to PCP -- TSH, lipid and LFT in 6 to 8 weeks. [patient started on levothyroxine during this hospitalization]. Job ID: [id number] MTDD
--- NOTE | 2020-04-25 17:00 | EKG ---
Test Reason : Blood Pressure : / mmHG Vent. Rate : 174 BPM Atrial Rate : 174 BPM P-R Int : 000 ms QRS Dur : 082 ms QT Int : 272 ms P-R-T Axes : 000 000 182 degrees QTc Int : 462 ms Atrial fibrillation with rapid ventricular response Abnormal ECG Confirmed by ALANNA DOWD ([id number]), marketing editor ALLEN ARMENTA ([id number]) on 04/25/2020 5:00:16 PM Referred By: Confirmed By:ALANNA Cespedes
--- NOTE | 2020-04-27 08:40 | PQF ---
AMADEO AMARAL SOUNDARI [id number] [facility]- B01 [id number] CLINICAL DOCUMENTATION CLARIFICATION FORM: POST DISCHARGE Addendum to original discharge summary date: ____ Late entry note date: __ DATE: 04/27/2020 ATTN:Kevin Estrada Please exercise your independent, professional judgment in responding to the clarification form. Clinical indicators are provided on the bottom of this form for your review. Can you please specify the diagnosis occasioning inpatient admission? Please check appropriate box(s): [ x ] Acute diastolic CHF [ ] Afib [ ] Other diagnosis [ ] Unable to determine For continuity of documentation, please document condition throughout progress notes and discharge summary. Thank You. CLINICAL INDICATORS - SIGNS / SYMPTOMS / LABS Consult 04/20 "EKG:Afib" DS 04/24 "Acute diastolic CHF" DS 04/24 "his acute onset of CHF probably related to Afib" Consult 04/20 "Lungs:Reduced breath sounds" Consult 04/20 "SOB" ED Notes 04/20 "abdominal swelling, leg swelling" Chest Xray 04/20 "Moderate right pleural effusion" TTE 04/21 "EF 50-55%" Vital Signs Pulse: 04/2292=760 Labs BNP: 04/2088=158.7 RISK FACTORS HTN-ED Notes 04/20 79 years old male-Consult 04/20 Afib-Consult 04/20 Tricuspid and mitral regurgitation-PN 04/21 TREATMENTS: Chest Xray-Collected 04/20 Electrocardiogram-Collected 04/25 EKG-Consult 04/20 TTE-Collected 04/21 Cardioversion-Spectroscopist 04/23 MARLINE-Collected 04/23 Carizem 25mg IV-JAN 02 Lasix 40mg IV-JAN 02 Amiodarone 450mg IV-JAN 02 (This form is maintained as a part of the permanent medical record) 2014 [employer]. All Rights Reserved [email or web address] [phone] JANINE
--- NOTE | 2020-04-27 08:44 | PQF ---
AMADEO AMARAL SOUNDARI [id number] [facility]- B01 [id number] CLINICAL DOCUMENTATION CLARIFICATION FORM: POST DISCHARGE Addendum to original discharge summary date: ____ Late entry note date: __ DATE: 04/27/2020 ATTN:Kevin Estrada Please exercise your independent, professional judgment in responding to the clarification form. Clinical indicators are provided on the bottom of this form for your review Please check appropriate box(s): Conflicting documentation was noted in the Medical Record, please clarify if patient is being treated/monitored for: [ x] Acute diastolic CHF [ ] Acute on chronic systolic vs diastolic CHF [ ] Other diagnosis [ ] Unable to determine For continuity of documentation, please document condition throughout progress notes and discharge summary. Thank You. CLINICAL INDICATORS - SIGNS / SYMPTOMS/ LABS DS 04/24 "Acute diastolic CHF" Consult 04/20 "acute on chronic systolic versus diasolic dysfunction" DS 04/24 "his acute onset of CHF probably related to Afib" Consult 04/20 "Lungs:Reduced breath sounds" Consult 04/20 "SOB" ED Notes 04/20 "abdominal swelling, leg swelling" Chest Xray 04/20 "Moderate right pleural effusion" TTE 04/21 "EF 50-55%" Labs BNP: 04/2073=119.7 RISK FACTORS HTN-ED Notes 04/20 79 years old male-Consult 04/20 Afib-Consult 04/20 Tricuspid and mitral regurgitation-PN 04/21 TREATMENT Chest Xray-Collected 04/20 Electrocardiogram-Collected 04/25 EKG-Consult 04/20 TTE-Collected 04/21 Cardioversion-Quality Control Operator 04/23 MARLINE-Collected 04/23 Carizem 25mg IV-JAN 02 Lasix 40mg IV-JAN 02 Amiodarone 450mg IV-JAN 02 (This form is maintained as a part of the permanent medical record) 2014 [employer] All Rights Reserved [email or web address] [email or web address]
== END 2020-04-24 15:39 | disposition home or self-care (01) | DRG 291 ==
LOC: ERS 08:14 → IMCU/EMU 10:20
PROVIDERS: ADMIT Orthopaedic Surgery; ATTEND Orthopaedic Surgery
PROC: 3E02340 Introduction of Influenza Vaccine into Muscle, Percutaneous Approach (ICD-10-PCS; 2020-04-20)
PROC: B24BZZ4 Ultrasonography of Heart with Aorta, Transesophageal (ICD-10-PCS; principal; 2020-04-23)
PROC: 5A2204Z Restoration of Cardiac Rhythm, Single (ICD-10-PCS; 2020-04-23)
DX: I11.0 Hypertensive heart disease with heart failure (principal); I50.31 Acute diastolic (congestive) heart failure; I48.91 Unspecified atrial fibrillation; K22.70 Barrett's esophagus without dysplasia; K21.9 Gastro-esophageal reflux disease without esophagitis; K22.2 Esophageal obstruction; E03.9 Hypothyroidism, unspecified; I08.1 Rheumatic disorders of both mitral and tricuspid valves; Z91.19 Patient's noncompliance with other medical treatment and regimen; Z88.0 Allergy status to penicillin; Z98.42 Cataract extraction status, left eye; Z98.41 Cataract extraction status, right eye; Z23 Encounter for immunization
CPT/HCPCS: 36415; 71045; 80048; 80053; 82550; 83690; 83880; 84439; 84443; 84481; 84484; 85025; 92960; 93005; 93010; 93306; 93312; 93798; 96365; 96366; 96376; J0282; J1650; J1940; J2704; J3490; J7070

== ENCOUNTER 2020-06-25 12:17 | Outpatient (CLI) | payer MEDICARE, OTHER ==
--- NOTE | 2020-06-25 12:48 | RAD ---
TWO VIEWS CHEST: DATE: 06/25/2020. PROVIDED CLINICAL HISTORY: Paroxysmal atrial fibrillation. FINDINGS: Comparison 04/20/2020. The cardiac silhouette is within normal limits. Vascular calcification is see n involving the aortic arch. Calcified right paratracheal lymph node is seen. Calcified granuloma r ight upper lung zone. No focal consolidation, pleural fluid, or pneumothorax apparent. IMPRESSION: No evidence for an acute cardiopulmonary process. POS: NORMA
== END 2020-06-25 12:18 | disposition home or self-care (01) ==
LOC: BICRAD 12:17
PROVIDERS: ATTEND Internal Medicine Cardiovascular Disease
DX: I48.0 Paroxysmal atrial fibrillation (principal)
CPT/HCPCS: 71046

== ENCOUNTER 2023-11-16 19:21 | Emergency (ER) | payer MEDICARE, OTHER | END 2023-11-16 20:28 | disposition left against medical advice (07) | LOC: ERS 19:21 | DX: Z53.21 Procedure and treatment not carried out due to patient leaving prior to being seen by health care provider (principal) ==